=== PATIENT | male | born 1945 | race Caucasian/White ===

== ENCOUNTER 2019-10-22 08:55 | Emergency (ER) | payer OTHER ==
[~2019-10-22] VITALS: Ht 188 cm; Wt 90.7 kg
[~2019-10-22 08:55] MED LIST: DEPAKOTE500 MG PO; FOLIC ACID1 MG PO; IMURAN 50MG TAB50 M1 PO; KEPPRA XR750 MG; LIPITOR40 MG; LISINOPRIL10 MG PO; LOW DOSE ASPIRI81 M1 PO; NITROGLYCERIN0.4 MG PO; NORCO 5-325 TA1 EACH PO; PROTONIX40 M2 PO; SULFASALAZINE500 M4; ZETIA10 MG
[2019-10-22 08:58] VITALS: BP 125/48
== END 2019-10-22 09:52 | disposition home or self-care (01) ==
LOC: ER 08:55
DX: Z48.00 Encounter for change or removal of nonsurgical wound dressing (principal); S90.811A Abrasion, right foot, initial encounter; E78.00 Pure hypercholesterolemia, unspecified; I10 Essential (primary) hypertension; G40.909 Epilepsy, unspecified, not intractable, without status epilepticus; Z88.6 Allergy status to analgesic agent; Z88.1 Allergy status to other antibiotic agents; Z88.8 Allergy status to other drugs, medicaments and biological substances; X58.XXXA Exposure to other specified factors, initial encounter; Y93.89 Activity, other specified; Y92.89 Other specified places as the place of occurrence of the external cause; Y99.8 Other external cause status

== ENCOUNTER 2020-06-06 10:52 | Emergency (ER) | payer OTHER ==
[~2020-06-06] VITALS: Ht 188 cm; Wt 93.1 kg
[2020-06-06] MEDS ORDERED: XIFAXAN550 M1 PO (12:05)
[2020-06-06] MEDS ORDERED: TAMSULOSIN HCL0.4 MG PO (12:07)
[2020-06-06] MEDS ORDERED: CARVEDILOL6.25 M1 PO (12:07)
[2020-06-06] MEDS ORDERED: KRILL OIL 1,001 EAC1 PO (12:08)
[2020-06-06] MEDS ORDERED: LACTAID FAS9000 UNI1 PO (12:08)
[2020-06-06] MEDS ORDERED: VITAMIN D350 MCG PO (12:09)
[2020-06-06 12:30] VITALS: BP 135/68
== END 2020-06-06 12:30 | disposition home or self-care (01) ==
LOC: ER 10:52
DX: S00.03XA Contusion of scalp, initial encounter (principal); I10 Essential (primary) hypertension; G40.909 Epilepsy, unspecified, not intractable, without status epilepticus; E78.00 Pure hypercholesterolemia, unspecified; Z79.899 Other long term (current) drug therapy; Z79.82 Long term (current) use of aspirin; Z88.5 Allergy status to narcotic agent; Z88.1 Allergy status to other antibiotic agents; Z88.8 Allergy status to other drugs, medicaments and biological substances; W19.XXXA Unspecified fall, initial encounter; Y93.89 Activity, other specified; Y92.481 Parking lot as the place of occurrence of the external cause; Y99.8 Other external cause status

== ENCOUNTER 2020-08-08 08:34 | Emergency (ER) | payer OTHER ==
[~2020-08-08] VITALS: Ht 188 cm; Wt 79.4 kg
[~2020-08-08 08:34] MED LIST changes: +CARVEDILOL6.25 M1 PO; +KRILL OIL 1,001 EAC1 PO; +LACTAID FAS9000 UNI1 PO; +TAMSULOSIN HCL0.4 MG PO; +VITAMIN D350 MCG PO; +XIFAXAN550 M1 PO
[2020-08-08] MEDS ORDERED: PROTONIX40 M2 PO (08:45)
[2020-08-08 11:53] LABS: HEMATOCRIT 35.7 % (42.0-52.0); HEMOGLOBIN 11.7 gm/dL (14.0-18.0); MCH 34.7 pg (26.0-34.0); MCHC 32.7 g/dL (28.0-37.0); MCV 106.1 fL (80.0-100.0); RBC 3.37 mil/uL (4.50-6.00); RDW 15.2 % (10.5-14.5); WBC 6.7 thou/uL (4.0-11.0)
[2020-08-08 12:03] LABS: CALCIUM 9.6 mg/dL (8.5-10.1); CREATININE 0.7 mg/dL (0.7-1.3); POTASSIUM 4.1 mmol/L (3.5-5.1)
[2020-08-08 12:10] LABS: ALBUMIN 3.3 g/dL (3.4-5.0); TOTAL BILIRUBIN 0.4 mg/dL (0.2-1.0); TOTAL PROTEIN 7.5 g/dL (6.4-8.2); URIC ACID* 4.6 mg/dL (3.5-7.2)
[2020-08-08 12:23] VITALS: BP 135/84
[2020-08-08] MEDS ORDERED: NAPROXEN375 MG PO (12:23)
[2020-08-08] MEDS ORDERED: NORCO 5-325 TA1 EAC2 PO (12:23)
== END 2020-08-08 12:23 | disposition home or self-care (01) ==
LOC: ER 08:34
PROVIDERS: Emergency Medicine
DX: M25.571 Pain in right ankle and joints of right foot (principal); D53.9 Nutritional anemia, unspecified; G14 Postpolio syndrome; G40.909 Epilepsy, unspecified, not intractable, without status epilepticus; I10 Essential (primary) hypertension; E78.00 Pure hypercholesterolemia, unspecified; Z79.899 Other long term (current) drug therapy; Z79.82 Long term (current) use of aspirin; Z88.5 Allergy status to narcotic agent; Z88.1 Allergy status to other antibiotic agents; Z88.8 Allergy status to other drugs, medicaments and biological substances

== ENCOUNTER 2021-08-03 11:05 | Emergency (ER) | payer OTHER ==
[~2021-08-03] VITALS: Ht 188 cm; Wt 79.4 kg
[~2021-08-03 11:05] MED LIST changes: +NAPROXEN375 MG PO; +NORCO 5-325 TA1 EAC2 PO
[2021-08-03] MEDS ORDERED: EZETIMIBE10 MG PO (13:13)
[2021-08-03] MEDS ORDERED: TAMSULOSIN HCL0.4 MG PO (13:15)
[2021-08-03] MEDS ORDERED: ARICEPT10 MG PO (13:16)
[2021-08-03 14:19] VITALS: BP 123/58
== END 2021-08-03 14:25 | disposition home or self-care (01) ==
LOC: ER 11:05
DX: S86.811A Strain of other muscle(s) and tendon(s) at lower leg level, right leg, initial encounter (principal); G40.909 Epilepsy, unspecified, not intractable, without status epilepticus; E78.00 Pure hypercholesterolemia, unspecified; I10 Essential (primary) hypertension; Z79.82 Long term (current) use of aspirin; Z79.891 Long term (current) use of opiate analgesic; Z79.899 Other long term (current) drug therapy; Z79.1 Long term (current) use of non-steroidal anti-inflammatories (NSAID); Z88.6 Allergy status to analgesic agent; Z88.1 Allergy status to other antibiotic agents; Z88.8 Allergy status to other drugs, medicaments and biological substances; W01.0XXA Fall on same level from slipping, tripping and stumbling without subsequent striking against object, initial encounter; Y93.89 Activity, other specified; Y92.89 Other specified places as the place of occurrence of the external cause; Y99.8 Other external cause status